=== PATIENT | male | born 1970 | race Caucasian/White ===

== ENCOUNTER 2016-11-11 09:05 | Day surgery (SDC) | payer BC ==
[~2016-11-11] VITALS: Ht 185.4 cm; Wt 189.5 kg
[2016-11-11] VITALS (7 sets, daily range): BP systolic 124–174; BP diastolic 64–88; PULSE 87–105; TEMP 97.6–98.3
[2016-11-11] MEDS ORDERED: DYAZIDE 25 MG-51 CAP PO (10:24)
[2016-11-11] MEDS ORDERED: NORCO 325 MG-7.1 TAB PO (16:33)
== END 2016-11-11 17:35 | disposition home or self-care (01) ==
LOC: SDCO 09:05
DX: M17.12 Unilateral primary osteoarthritis, left knee (principal); M23.204 Derangement of unspecified medial meniscus due to old tear or injury, left knee; M23.201 Derangement of unspecified lateral meniscus due to old tear or injury, left knee
CPT/HCPCS: J0360; J1885; J2175; J2704; J3010; J7120

== ENCOUNTER 2017-04-05 11:00 | Outpatient (RCR) | payer BC ==
[~2017-04-05 11:00] MED LIST: DYAZIDE 25 MG-51 CAP PO; NORCO 325 MG-7.1 TAB PO
== END 2017-04-18 | disposition home or self-care (01) ==
LOC: WSPT
DX: R60.1 Generalized edema (principal)

== ENCOUNTER 2017-06-07 08:15 | Outpatient (RCR) | payer BC | END 2017-06-07 15:43 | LOC: WSPT 08:15 | DX: R60.1 Generalized edema (principal) ==